=== PATIENT | female | born 1990 | race Caucasian/White ===

== ENCOUNTER 2019-08-02 13:33 | Emergency (ER) | payer OTHER ==
--- NOTE | 2019-08-02 13:52 | ED ---
HPI Chest Pain - HPI Summary HPI Summary: This pt is a 28 y/o transgender female presenting to [facility] via EMS for chest pain since yesterday. Pt describes her chest pain as nonradiating and heaviness like "someone standing" on her chest. Additionally pt states she has sharp pain every 45 seconds. Denies fever, chills, nausea, vomiting, SOB. EMS administered 324 mg aspirin and nitroglycerin [employer], but EMS states her chest pain did not alleviate immediately and took some time. At onset of her chest pain she rates it 10/10 in severity and currently rates her chest pain 1/10. Pt reports having "PTSD moments" and recent stress of trying to look for apartments. Last night she notes the apartments wouldn't take paper deposit from [employer] and became "amped up." She states she has never had chest pain in the past when becoming angry. PMHx: PTSD. Her medications include 6 mg of Estradiol and 200 mg of Spironolactone. Pt is a former tobacco user, quit 3 days ago. Pt states she quit because for the past month she has waken up with blood in her mouth and has been coughing "black things." Denies drug or alcohol use. - History of Current Complaint Chief Complaint: EDChestPainROMI Hx Obtained From: Patient Onset/Duration: Started Days Ago - 1, Still Present Timing: Lasting Days - 1 Initial Severity: Severe Current Severity: Mild Pain Intensity: 1 Pain Scale Used: 0-10 Numeric Chest Pain Location: Diffuse Chest Pain Radiates: No Character: Heaviness, Sharp/Stabbing - sharp Aggravating Factor(s): Nothing Alleviating Factor(s): Nothing Associated Signs and Symptoms: Positive: Chest Pain, Recent Stress. Negative: Shortness of Breath, Fever, Chills, Nausea, Vomiting - Allergy/Home Medications Allergies/Adverse Reactions: Allergies Allergy/AdvReac Type Severity Reaction Status Date / Time latex Allergy Rash Verified 08/02/19 14:31 Home Medications: Home Medications Estradiol [Estrace] 6 mg PO DAILY 08/02/19 [History Confirmed 08/02/19] Spironolactone [Aldactone 100 MG-] 200 mg PO DAILY 08/02/19 [History Confirmed 08/02/19] PMH/Surg Hx/FS Hx/Imm Hx Endocrine/Hematology History: Denies: Hx Diabetes Cardiovascular History: Denies: Hx Hypertension Psychiatric History: Reports: Hx Post Traumatic Stress Disorder - Surgical History Surgical History: Yes Surgery Procedure, Year, and Place: Right wrist surgery Infectious Disease History: No Infectious Disease History: Denies: Traveled Outside the US in Last 30 Days - Family History Known Family History: Positive: Diabetes Family History: High cholesterol - Social History Alcohol Use: None Substance Use Type: Reports: None Hx Tobacco Use: Yes - quit 3 days ago Smoking Status (MU): Former Smoker Review of Systems Negative: Fever, Chills Positive: Chest Pain Negative: Shortness Of Breath Negative: Vomiting, Nausea All Other Systems Reviewed And Are Negative: Yes Physical Exam - Summary Physical Exam Summary: VITAL SIGNS: Reviewed. GENERAL: Patient is a well-developed and nourished female who is lying comfortable in the stretcher. Patient is not in any acute respiratory distress. HEAD AND FACE: No signs of trauma. No ecchymosis, hematomas or skull depressions. No sinus tenderness. EYES: PERRLA, EOMI x 2, No injected conjunctiva, no nystagmus. EARS: Hearing grossly intact. Ear canals and tympanic membranes are within normal limits. MOUTH: Oropharynx within normal limits. NECK: Supple, trachea is midline, no adenopathy, no JVD, no carotid bruit, no c- spine tenderness, neck with full ROM. CHEST: Symmetric, no tenderness at palpation. LUNGS: Clear to auscultation bilaterally. No wheezing or crackles. CVS: Regular rate and rhythm, S1 and S2 present, no murmurs or gallops appreciated. ABDOMEN: Soft, non-tender. No signs of distention. No rebound, no guarding, and no masses palpated. Bowel sounds are normal. EXTREMITIES: FROM in all major joints, no edema, no cyanosis or clubbing. NEURO: Alert and oriented x 3. No acute neurological deficits. Speech is normal and follows commands. SKIN: Dry and warm. Triage Information Reviewed: Yes Vital Signs On Initial Exam: Initial Vitals Temp Pulse Resp BP Pulse Ox 97.6 F 73 16 109/57 97 08/02/19 13:38 08/02/19 13:38 08/02/19 13:38 08/02/19 13:38 08/02/19 13:38 Vital Signs Reviewed: Yes Procedures - Sedation Patient Received Moderate/Deep Sedation with Procedure: No Diagnostics - Vital Signs Vital Signs Temp Pulse Resp BP Pulse Ox 08/02/19 13:38 97.6 F 73 16 109/57 97 - Laboratory Result Diagrams: 08/02/19 14:55 08/02/19 14:55 Lab Statement: Any lab studies that have been ordered have been reviewed, and results considered in the medical decision making process. - Radiology Chest XR Radiology Interpretation Completed By: Radiologist Summary of Radiographic Findings: IMPRESSION: #. Elevated lung volumes suggest obstructive lung disease. #. No acute cardiopulmonary process evident. Dr. Verde has reviewed this report. - EKG 14:17 Cardiac Rate: NL - at 61 bpm EKG Rhythm: Sinus Rhythm Summary of EKG Findings: EKG at 1417 shows normal sinus rhythm at a rate of 61 bpm. No STEMI. Re-Evaluation - Re-Evaluation First Eval Re-Evaluation Time: 16:47 Comment: Reviewed results with pt. She will be discharged home. Chest Pain Course/Dx - Course Assessment/Plan: This pt is a 28 y/o transgender female presenting to [facility] via EMS for chest pain since yesterday. Pt describes her chest pain as nonradiating and heaviness like "someone standing" on her chest. Additionally pt states she has sharp pain every 45 seconds. Denies fever, chills, nausea, vomiting, SOB. EMS administered 324 mg aspirin and nitroglycerin [employer], but EMS states her chest pain did not alleviate immediately and took some time. At onset of her chest pain she rates it 10/10 in severity and currently rates her chest pain 1/10. Pt reports having "PTSD moments" and recent stress of trying to look for apartments. She notes the apartments won't take paper deposit from [employer] and got "amped up." She states she has never had chest pain in the past when becoming angry. PMHx: PTSD. Her medications include 6 mg of Estradiol and 200 mg of Spironolactone. Pt is a former tobacco user, quit 3 days ago. Pt states she quit because for the past month she has woken up with blood in her mouth and has been coughing "black things." Denies drug or alcohol use. Blood test results without any significant abnormality, troponin is 0.00. HEART score is equal to 0. Patient reports that all symptoms have resolved. Because the patient has no significant comorbidities and no family history of cardiovascular disease at her age the patient will be discharged home with follow up from her PMD. I discussed all the findings and test results with the patient. Patient was instructed to return to the emergency room immediately if any of the symptoms return or worsen. Patient understands and agrees. Plan of care was discussed with the patient and patient understands and agrees. All questions were answered at patient satisfaction. There were no further complaints or concerns. PE before discharge: CVS: S1 and S2 present. No murmurs appreciated. Abdominal exam before discharge: Soft, non-tender. No signs of distention. No rebound no guarding, and no masses palpated. Bowel sounds are normal. Patient is alert and oriented x 3. Patient is hemodynamically stable. - Diagnoses Provider Diagnoses: Chest pain Discharge ED - Sign-Out/Discharge Documenting (check all that apply): Patient Departure - Discharge home - Discharge Plan Condition: Stable Disposition: HOME Patient Education Materials: Chest Pain (ED) Referrals: [facility] [Outside] Additional Instructions: Follow up with your primary care provider in 2-3 days. If you don't have one follow up with [facility]. RETURN TO THE ED FOR ANY WORSENING OR NEW SYMPTOMS. - Billing Disposition and Condition Condition: STABLE Disposition: Home - Attestation Statements Document Initiated by Susan: Yes Documenting Scribe: Nicole Lima Provider For Whom Susan is Documenting (Include Credential): Devin Verde MD Scribe Attestation: Nicole Mortensen scribed for Devin Verde MD on 08/02/19 at 2126. Scribe Documentation Reviewed: Yes Provider Attestation: The documentation as recorded by the Nicole pemberton accurately reflects the service I personally performed and the decisions made by me, Devin Verde MD Status of Scribe Document: Viewed
[2019-08-02 14:46] LABS: Urine Appearance Cloudy; Urine Bilirubin Negative (Negative); Urine Blood Negative (Negative); Urine Color Yellow; Urine Glucose Negative (Negative); Urine Ketones Negative (Negative); Urine Nitrite Negative (Negative); Urine Protein Negative (Negative); Urine Specific Gravity 1.024 (1.010-1.030); Urine Urobilinogen Negative (Negative)
[2019-08-02 15:05] LABS: ABS Basophils 0.1 10^3/ul (0-0.2); ABS Eosinophils 0.1 10^3/ul (0-0.6); ABS Monocytes 0.9 10^3/ul (0-0.8); ABS Neutrophils 4.8 10^3/ul (1.5-7.7); Eosinophil % 1.4 %; Hematocrit 37 % (35-47); Hemoglobin 12.8 g/dL (12.0-16.0); Lymphocyte % 25.5 %; Mean Corpuscular HGB Conc 35 g/dL (31-36); Mean Corpuscular Hemoglobin 33 pg (27-31); Mean Corpuscular Volume 96 fL (80-97); Nucleated Red Blood Cells % 0.1; Platelet Count 336 10^3/uL (150-450); Red Blood Count 3.84 10^6 /uL (3.70-4.87); Red Cell Distribution Width 13 % (10-15); White Blood Count 7.9 10^3/uL (3.5-10.8)
[2019-08-02 15:28] LABS: Albumin 3.9 g/dL (3.2-5.2); Albumin/Globulin Ratio 1.6 (1-3); BUN/Creatinine Ratio 35.8 (8-20); Calcium 8.6 mg/dL (8.6-10.3); EGFR African American 166.2 (>60); EGFR Non-African American 137.4 (>60); Globulin 2.4 g/dL (2-4); Potassium 3.7 mmol/L (3.5-5.0); Total Bilirubin 0.3 mg/dL (0.2-1.0); Total Protein 6.3 g/dL (6.4-8.9)
[2019-08-02 17:23] VITALS: BP 123/76
== END 2019-08-02 17:22 | disposition home or self-care (01) ==
LOC: ED 13:33
DX: R07.9 Chest pain, unspecified (principal); F43.10 Post-traumatic stress disorder, unspecified; Z87.891 Personal history of nicotine dependence; Z79.899 Other long term (current) drug therapy; Z91.040 Latex allergy status
CPT/HCPCS: 36415; 71046; 80053; 81003; 83605; 83880; 84484; 85025; 93005; 99282

== ENCOUNTER 2019-08-26 14:18 | Emergency (ER) | payer OTHER ==
--- OUTSIDE RECORDS SUMMARY | 2019-08-26 14:35 | XMS REPORT ---
:1990 Author Organization [facility] Care Team Providers Name Role Phone Nakul Lee Primary Care Physician Unavailable Allergies, Adverse Reactions, Alerts Allergy Code CodeSystem Reaction Severity Criticality Status Start Substance Date Moderate Medications Medication Medication Medication Start Stop Route Dose Status Fill Code CodeSystem Date Date Instructions RxNorm Problems Problem Name Code CodeSystem Alternate Alternate Start End Status Narrative Code CodeSystem Date Date Post-traumat 93576125 SNOMED-CT 2018-08 Active ic stress 1-26 disorder, unspecified Relevant diagnostic tests/laboratory data Narrative No Information Procedures Procedure Code CodeSystem Target Date of Status Service Device Device Device Name Site Procedure Delivery Code Name UID Location Psychother [id number] SNOMED-CT () 2019-07-26 completed Mental apy, 45 4 Health- [facility] with [facility] patient [address] [place] [address], [id number] [id number] SNOMED-CT () 2019-08-[address], [id number] SNOMED-CT () 2019-07-[address], [id number] SNOMED-CT () 2019-07-[address], [id number] SNOMED-CT () 2019-07-[address], [id number] Encounters/Encounter Diagnoses Encounter Encounter Diagnosis Diagnosis Diagnosis Date of Service Name Code Code Name CodeSystem Diagnosis Delivery Location Initial [id number] Post-traumati SNOMED-CT 2019-08-07 Behavioral Assessment c stress Health Diagnostic & disorder, Clinic , , Treatment unspecified , Plan w/ Medical Services Vital Signs No Information Social History Element Description Description Start End Code CodeSystem AdditionalInfo Date Date SexAssignedAtBirth Female F AdministrativeGender 10-02 Hospital Discharge Instructions Reason For Referral Medical Equipment FDA Assessments
--- OUTSIDE RECORDS SUMMARY | 2019-08-26 14:35 | XMS REPORT ---
:1990 Author Organization [facility] Care Team Providers Name Role Phone Nakul Lee Primary Care Physician Unavailable Allergies, Adverse Reactions, Alerts Allergy Code CodeSystem Reaction Severity Criticality Status Start Substance Date Moderate Medications Medication Medication Medication Start Stop Route Dose Status Fill Code CodeSystem Date Date Instructions RxNorm Problems Problem Name Code CodeSystem Alternate Alternate Start End Status Narrative Code CodeSystem Date Date Post-traumat 93940856 SNOMED-CT 2018-08 Active ic stress - disorder, unspecified Relevant diagnostic tests/laboratory data Narrative No Information Procedures Procedure Code CodeSystem Target Date of Status Service Device Device Device Name Site Procedure Delivery Code Name UID Location SNOMED-CT () 2019-07-[address], [id number] Encounters/Encounter Diagnoses Encounter Name Encounter Diagnosis Diagnosis Diagnosis Date of Service Code Code Name CodeSystem Diagnosis Delivery Location Psychotherapy - [id number] Post-traumati SNOMED-CT 2019-07-26 Behavioral Individual 30 c stress Health min disorder, Clinic , , unspecified , Vital Signs No Information Social History Element Description Description Start End Code CodeSystem AdditionalInfo Date Date SexAssignedAtBirth Female 1990- F AdministrativeGender 10-02 Hospital Discharge Instructions Reason For Referral Medical Equipment FDA Assessments
--- OUTSIDE RECORDS SUMMARY | 2019-08-26 14:35 | XMS REPORT ---
:1990 Author Organization [facility] Care Team Providers Name Role Phone Nakul Lee Primary Care Physician Unavailable Allergies, Adverse Reactions, Alerts Allergy Code CodeSystem Reaction Severity Criticality Status Start Substance Date Moderate Medications Medication Medication Medication Start Stop Route Dose Status Fill Code CodeSystem Date Date Instructions RxNorm Problems Problem Name Code CodeSystem Alternate Alternate Start End Status Narrative Code CodeSystem Date Date Post-traumat [id number] SNOMED-CT 2018-08 Active ic stress - disorder, unspecified Relevant diagnostic tests/laboratory data Narrative No Information Procedures Procedure Code CodeSystem Target Date of Status Service Device Device Device Name Site Procedure Delivery Code Name UID Location SNOMED-CT () 2019-07-[address], [id number] SNOMED-CT () 2019-07-[address], [id number] Encounters/Encounter Diagnoses Encounter Name Encounter Diagnosis Diagnosis Diagnosis Date of Service Code Code Name CodeSystem Diagnosis Delivery Location [facility] [id number] Post-traumati SNOMED-CT 2019-07-26 Behavioral Individual 30 c stress Health min disorder, Clinic , , unspecified , Vital Signs No Information Social History Element Description Description Start End Code CodeSystem AdditionalInfo Date Date SexAssignedAtBirth Female F AdministrativeGender 2-11 Hospital Discharge Instructions Reason For Referral Medical Equipment FDA Assessments
--- NOTE | 2019-08-26 15:57 | ED ---
Respiratory - HPI Summary HPI Summary: Pt is a 28 y/o M to F transgender person presenting to the ED with a chief complaint of a cough. She states she has experienced hemoptysis for the past 4 weeks, and recently experienced chest tightness as well. She was seen prior for this with normal workup. She also notes she believes she had a seizure on 2019 because she had a sudden screaming migraine followed by confusion and losing track of two hours. She states shes had a seizure before with a similar presentation when she was 22, which a neurologist said was a complex migraine. She denies congestion, rhinorrhea, tongue bite, or incontinence. She recently started smoking again and is currently taking Estradiol and Spironolactone. States shes had an MRI of her back/chest done in [facility]. - History of Current Complaint Chief Complaint: EDGeneral Stated Complaint: COUGHING UP BLOOD PER PT Time Seen by Provider: 08/26/19 14:58 Hx Obtained From: Patient Onset/Duration: Gradual Onset, Lasting Weeks, Still Present Timing: Constant Initial Severity: Mild Current Severity: Moderate Pain Intensity: 4 Character: Cough (Productive) Sputum Amount: Moderate Aggravating Factor(s): Nothing Alleviating Factor(s): Nothing Associated Signs and Symptoms: Chest Pain, Hemoptysis - Allergy/Home Medications Allergies/Adverse Reactions: Allergies Allergy/AdvReac Type Severity Reaction Status Date / Time latex Allergy Rash Verified 08/26/19 14:25 PMH/Surg Hx/FS Hx/Imm Hx Previously Healthy: Yes Endocrine/Hematology History: Denies: Hx Diabetes Cardiovascular History: Denies: Hx Hypertension Psychiatric History: Reports: Hx Post Traumatic Stress Disorder - Surgical History Surgery Procedure, Year, and Place: Right wrist surgery Infectious Disease History: No Infectious Disease History: Denies: Traveled Outside the [place] in Last 30 Days - Family History Known Family History: Positive: Diabetes Negative: Blood Disorder Family History: High cholesterol - Social History Alcohol Use: None Hx Substance Use: Yes Substance Use Type: Reports: Marijuana Substance Use Comment - Amount & Last Used: Pt states she has a medical card Hx Tobacco Use: Yes - quit 3 days ago Smoking Status (MU): Former Smoker Review of Systems Negative: Nasal Discharge, Other - tongue bite Positive: Chest Pain Positive: Cough, Other - hemoptysis Negative: incontinence Neurological: Other - migraine, poss. seizure Positive: Headache All Other Systems Reviewed And Are Negative: Yes Physical Exam - Summary Physical Exam Summary: Constitutional: Well-developed, Well-nourished, Alert. (-) Distressed Skin: Warm, Dry HENT: Normocephalic; Atraumatic Eyes: Conjunctiva normal Neck: Musculoskeletal ROM normal neck. (-) JVD, (-) Stridor, (-) Nuchal rigidity Cardio: Rhythm regular, rate normal, Heart sounds normal; Intact distal pulses; Radial pulses are 2+ and symmetric. (-) Murmur Pulmonary/Chest wall: Effort normal. (-) Respiratory distress, (-) Wheezes, (-) Rales Abd: Soft, (-) tenderness, (-) Distension, (-) Guarding, (-) Rebound Musculoskeletal: (-) Edema Lymph: (-) Cervical adenopathy Neuro: Alert, Oriented x3 Psych: Mood and affect Normal Triage Information Reviewed: Yes Vital Signs On Initial Exam: Initial Vitals Temp Pulse Resp BP Pulse Ox 98.1 F 89 16 142/75 100 08/26/19 14:19 08/26/19 14:19 08/26/19 14:19 08/26/19 14:19 08/26/19 14:19 Vital Signs Reviewed: Yes Procedures - Sedation Patient Received Moderate/Deep Sedation with Procedure: No Diagnostics - Vital Signs Vital Signs Temp Pulse Resp BP Pulse Ox 08/26/19 15:33 86 24 115/67 97 08/26/19 15:04 82 99 08/26/19 15:03 77 136/77 99 08/26/19 14:19 98.1 F 89 16 142/75 100 - Laboratory Result Diagrams: 08/26/19 15:58 08/26/19 15:58 Lab Statement: Any lab studies that have been ordered have been reviewed, and results considered in the medical decision making process. - Radiology CXR Radiology Interpretation Completed By: Radiologist Summary of Radiographic Findings: No active cardiopulmonary disease is noted. ED physician has reviewed this report. Disposition - Course Course Of Treatment: 34 y/o male to female transgender patient presenting with hemoptysis concern for seizure. -regarding hemoptysis, patient has a smoking history which could be contributing to this. Reported possible abnormal lung findings on MRI but is unable to remember what it was. Chest x-ray here w/o abnormalities. D-dimer less than 200, do not suspect PE. Patient can follow up with the clinic regarding the MRI. - Patient has a history of a prior complex migraine which was initially thought to have been a seizure. Patient denies tongue biting, bowel or bladder incontinence, suspect episode more consistent with complex migraine. can follow up with neurology - Diagnoses Provider Diagnoses: Hemoptysis, Complicated migraine Discharge ED - Sign-Out/Discharge Documenting (check all that apply): Patient Departure - Discharge Plan Condition: Stable Disposition: HOME Patient Education Materials: Migraine Headache (ED), Hemoptysis (ED) Referrals: [facility] [Outside] Additional Instructions: You were seen in the emergency department for coughing up blood as well as concern for seizure. A chest x-ray did not show any abnormalities, your labs not show cause for coughing up blood. Regarding the concern for seizure, we advise you follow up with neurology for likely complex migraine. If you are concerned you are having seizures, please take a shower and do not take a bath, do not swim alone. Do not drive or operate machinery. P Please return to emergency department for continued seizures, trouble breathing , chest pain or if you're concerned Please follow up with your primary care doctor in next 2-3 days. It was a pleasure taking care of you today. - Billing Disposition and Condition Condition: STABLE Disposition: Home - Attestation Statements Document Initiated by Susan: Yes Documenting Scribe: Mary Herron Provider For Whom Susan is Documenting (Include Credential): Nasim Cruz MD. Scribe Attestation: IMary, scribed for Nasim Cruz MD. on 08/26/19 at 1650. Scribe Documentation Reviewed: Yes Provider Attestation: The documentation as recorded by the Mary pemberton accurately reflects the service I personally performed and the decisions made by , Nasim Cruz MD. Status of Scribe Document: Viewed
[2019-08-26 16:16] LABS: ABS Basophils 0.1 10^3/ul (0-0.2); ABS Eosinophils 0.1 10^3/ul (0-0.6); ABS Lymphocytes 2.2 10^3/ul (1.0-4.8); ABS Neutrophils 5.6 10^3/ul (1.5-7.7); Hematocrit 40 % (35-47); Hemoglobin 14.3 g/dL (12.0-16.0); Lymphocyte % 24.5 %; Mean Corpuscular HGB Conc 36 g/dL (31-36); Mean Corpuscular Hemoglobin 34 pg (27-31); Mean Corpuscular Volume 95 fL (80-97); Mean Platelet Volume 7.1 fL (7.4-10.4); Platelet Count 340 10^3/uL (150-450); Red Blood Count 4.18 10^6 /uL (3.70-4.87); Red Cell Distribution Width 13 % (10-15)
[2019-08-26 16:31] LABS: Albumin 4.3 g/dL (3.2-5.2); Albumin/Globulin Ratio 1.7 (1-3); BUN/Creatinine Ratio 31.7 (8-20); Calcium 9.4 mg/dL (8.6-10.3); Globulin 2.6 g/dL (2-4); Potassium 4.1 mmol/L (3.5-5.0); Total Bilirubin 0.4 mg/dL (0.2-1.0); Total Protein 6.9 g/dL (6.4-8.9)
[2019-08-26 17:01] VITALS: BP 111/64
== END 2019-08-26 17:14 | disposition home or self-care (01) ==
LOC: ED 14:18
DX: R04.2 Hemoptysis (principal); G43.109 Migraine with aura, not intractable, without status migrainosus; R07.89 Other chest pain; Z91.040 Latex allergy status; Z87.891 Personal history of nicotine dependence
CPT/HCPCS: 36415; 71046; 80053; 85025; 85379; 99283

== ENCOUNTER 2019-09-20 10:32 | Inpatient (IN) | payer OTHER ==
--- OUTSIDE RECORDS SUMMARY | 2019-09-20 10:45 | XMS REPORT ---
:1990 Author Organization [facility] Care Team Providers Name Role Phone DULCE MARIA TENORIO Primary Care Physician Unavailable Allergies, Adverse Reactions, Alerts Allergy Code CodeSystem Reaction Severity Criticality Status Start Substance Date Moderate Medications Medication Medication Medication Start Stop Route Dose Status Fill Code CodeSystem Date Date Instructions RxNorm Problems Problem Name Code CodeSystem Alternate Alternate Start End Status Narrative Code CodeSystem Date Date Post-traumat [id number] SNOMED-CT 2018-08 Active ic stress 1- disorder, unspecified Relevant diagnostic tests/laboratory data Narrative No Information Procedures Procedure Code CodeSystem Target Date of Status Service Device Device Device Name Site Procedure Delivery Code Name UID Location Psychotherap [id number] SNOMED-CT () 2019-07-26 complete Mental y, 45 04 d Health- minutes with [address], [id number] [id number] Psychotherap [id number] SNOMED-CT () 2019-08-07 complete Mental y, 45 04 d Health- minutes with [address], [id number] [id number] Psychotherap [id number] SNOMED-CT () 2019-08-14 complete Mental y, 45 04 d Health- minutes with [address], [id number] [id number] Psychotherap [id number] SNOMED-CT () 2019-08-29 complete Mental y, 45 04 d Health- minutes with [address], [id number] [id number] Psychotherap [id number] SNOMED-CT () 2019-08-28 complete Mental y, 45 04 d Health- minutes with [address], [id number] [id number] Psychotherap [id number] SNOMED-CT () 2019-09-03 complete Mental y, 45 04 d Health- minutes with [place] patient [address], [id number] [phone] Psychiatric [id number] SNOMED-CT () 2019-08-07 complete Mental diagnostic 85 d Health- evaluation [facility] services [address] [place] [address], [id number] [id number] SNOMED-CT () 2019-08-02 complete Mental d Health- [address], [id number] [id number] SNOMED-CT () 2019-07-31 complete Mental d Health- [address], [id number] [id number] SNOMED-CT () 2019-07-17 complete Mental d Health- [address], [id number] [id number] SNOMED-CT () 2019-07-24 complete Mental d Health- [address], [id number] [id number] Encounters/Encounter Diagnoses Encounter Name Encounter Diagnosis Diagnosis Diagnosis Date of Service Code Code Name CodeSystem Diagnosis Delivery Location [facility] [id number] Post-traumati SNOMED-CT 2019-09-12 Behavioral Individual 30 c stress Health min disorder, Clinic , , unspecified , Vital Signs No Information Social History Element Description Description Start End Code CodeSystem AdditionalInfo Date Date SexAssignedAtBirth Female F AdministrativeGender -11 Hospital Discharge Instructions Reason For Referral Medical Equipment FDA Assessments
--- OUTSIDE RECORDS SUMMARY | 2019-09-20 10:45 | XMS REPORT ---
:1990 Author Organization [facility] Care Team Providers Name Role Phone Nakul Lee Primary Care Physician Unavailable Allergies, Adverse Reactions, Alerts Allergy Code CodeSystem Reaction Severity Criticality Status Start Substance Date Moderate Medications Medication Medication Medication Start Stop Route Dose Status Fill Code CodeSystem Date Date Instructions RxNorm Problems Problem Name Code CodeSystem Alternate Alternate Start End Status Narrative Code CodeSystem Date Date Post-traumat 25667859 SNOMED-CT 2018-08 Active ic stress 09-16 disorder, unspecified Relevant diagnostic tests/laboratory data Narrative No Information Procedures Procedure Code CodeSystem Target Date of Status Service Device Device Device Name Site Procedure Delivery Code Name UID Location Psychotherap [id number] SNOMED-CT () 2019-07-26 complete Mental y, 45 04 d Health- minutes with [address], [id number] Psychotherap 202048 SNOMED-CT () 2019-08-07 complete Mental y, 45 04 d Health- minutes with [address], [id number] Psychiatric [id number] SNOMED-CT () 2019-08-07 complete Mental diagnostic 85 d Health- evaluation [address], [id number] SNOMED-CT () 2019-08-02 complete Mental d Health- [address], [id number] SNOMED-CT () 2019-07-31 complete Mental d Health[address], [id number] SNOMED-CT () 2019-07-17 complete Mental d [address], [id number] SNOMED-CT () 2019-07-24 complete Mental d Health- [address], [id number] [id number] Encounters/Encounter Diagnoses Encounter Encounter Diagnosis Diagnosis Diagnosis Date of Service Name Code Code Name CodeSystem Diagnosis Delivery Location Initial [id number] Post-traumati SNOMED-CT 2019-08-07 Behavioral Assessment c stress Health Diagnostic & disorder, Clinic , , Treatment unspecified , Plan w/ Medical Services Vital Signs No Information Social History Element Description Description Start End Code CodeSystem AdditionalInfo Date Date SexAssignedAtBirth Female F AdministrativeGender -11 Hospital Discharge Instructions Reason For Referral Medical Equipment FDA Assessments
[2019-09-20 11:01] LABS: ABS Basophils 0.1 10^3/ul (0-0.2); ABS Eosinophils 0.1 10^3/ul (0-0.6); ABS Lymphocytes 2.1 10^3/ul (1.0-4.8); ABS Monocytes 0.8 10^3/ul (0-0.8); ABS Neutrophils 5.5 10^3/ul (1.5-7.7); Eosinophil % 1.6 %; Hematocrit 41 % (35-47); Hemoglobin 14.7 g/dL (12.0-16.0); Lymphocyte % 24.3 %; Mean Corpuscular HGB Conc 36 g/dL (31-36); Mean Corpuscular Hemoglobin 34 pg (27-31); Mean Corpuscular Volume 94 fL (80-97); Mean Platelet Volume 7.1 fL (7.4-10.4); Nucleated Red Blood Cells % 0.1; Platelet Count 351 10^3/uL (150-450); Red Blood Count 4.35 10^6 /uL (3.70-4.87); Red Cell Distribution Width 12 % (10-15); White Blood Count 8.6 10^3/uL (3.5-10.8)
[2019-09-20 11:17] LABS: ALT 12 U/L (7-52); AST 14 U/L (13-39); Albumin 4.2 g/dL (3.2-5.2); Albumin/Globulin Ratio 1.4 (1-3); Alkaline Phosphatase 46 U/L (34-104); Anion Gap 6 mmol/L (2-11); BUN/Creatinine Ratio 12.9 (8-20); Blood Urea Nitrogen 8 mg/dL (6-24); CO2 Carbon Dioxide 28 mmol/L (22-32); Calcium 9.3 mg/dL (8.6-10.3); Chloride 102 mmol/L (101-111); EGFR African American 138.7 (>60); EGFR Non-African American 114.6 (>60); Globulin 2.9 g/dL (2-4); Glucose 84 mg/dL (70-100); Potassium 3.8 mmol/L (3.5-5.0); Sodium 136 mmol/L (135-145); Total Protein 7.1 g/dL (6.4-8.9)
[2019-09-20 11:24] LABS: Urine Appearance Cloudy; Urine Bilirubin Negative (Negative); Urine Blood Negative (Negative); Urine Color Yellow; Urine Glucose Negative (Negative); Urine Ketones Negative (Negative); Urine Nitrite Negative (Negative); Urine Protein Negative (Negative); Urine Specific Gravity 1.008 (1.010-1.030); Urine Urobilinogen Negative (Negative)
[2019-09-20 11:28] LABS: Urine Bacteria Absent (Absent); Urine Red Blood Cell Trace(0-2/hpf) (Absent); Urine Squamous Epithelial Cell Present (Absent); Urine White Blood Cell Trace(0-5/hpf) (Absent)
[2019-09-20 11:36] LABS: Urine Benzodiazepine Screen None Detected (None Detect); Urine Opiates Screen None Detected (None Detect)
[2019-09-20 12:09] LABS: Acetaminophen < 15 mcg/mL; Alcohol < 10 mg/dL (<10); Salicylate < 2.50 mg/dL (<30)
[2019-09-20 12:23] LABS: TSH (Thyroid Stimulating Horm) 1.82 mcIU/mL (0.34-5.60)
--- NOTE | 2019-09-20 13:01 | ED ---
Psychiatric Complaint - HPI Summary HPI Summary: Patient is a 28 y/o F presenting to [facility] via EMS under 945 status from [facility] for SI. Patient reports experiencing SI since moving to [place] but reports a recent exacerbation of this Sx. Patient notes Hx of past suicide attempts. Patient is currently on hormone therapy. Home medications and allergies are reviewed. - History Of Current Complaint Chief Complaint: EDMentalHealth Time Seen by Provider: 09/20/19 10:32 Hx Obtained From: Patient Onset/Duration: Lasting Weeks, Still Present, Worse Since Timing: Weeks Character: Depressed Has Suicidal: Reports: Thoughts, Has Prior Attempt(s) - Allergies/Home Medications Allergies/Adverse Reactions: Allergies Allergy/AdvReac Type Severity Reaction Status Date / Time latex Allergy Rash Verified 08/26/19 14:25 Home Medications: Home Medications Progesterone CAP (NF) [Prometrium (NF)] 100 mg PO DAILY 09/20/19 [History Confirmed 09/20/19] PMH/Surg Hx/FS Hx/Imm Hx Endocrine/Hematology History: Denies: Hx Diabetes Cardiovascular History: Denies: Hx Hypertension Psychiatric History: Reports: Hx Post Traumatic Stress Disorder - Surgical History Surgery Procedure, Year, and Place: Right wrist surgery Infectious Disease History: No Infectious Disease History: Denies: Traveled Outside the [place] in Last 30 Days - Family History Known Family History: Positive: Diabetes Negative: Blood Disorder Family History: High cholesterol - Social History Alcohol Use: None Hx Substance Use: Yes Substance Use Type: Reports: Marijuana Substance Use Comment - Amount & Last Used: Pt states she has a medical card Hx Tobacco Use: Yes - quit 3 days ago Smoking Status (MU): Light Every Day Tobacco Smoker Review of Systems Negative: Fever - on vitals, temp is 97.6 F Psychological: Other - positive - SI Positive: Depressed All Other Systems Reviewed And Are Negative: Yes Physical Exam - Summary Physical Exam Summary: VITAL SIGNS: Reviewed. GENERAL: Patient is a well-developed and nourished female who is lying comfortable in the stretcher. Patient is not in any acute respiratory distress. HEAD AND FACE: No signs of trauma. No ecchymosis, hematomas or skull depressions. No sinus tenderness. EYES: PERRLA, EOMI x 2, No injected conjunctiva, no nystagmus. EARS: Hearing grossly intact. Ear canals and tympanic membranes are within normal limits. MOUTH: Oropharynx within normal limits. NECK: Supple, trachea is midline, no adenopathy, no JVD, no carotid bruit, no c- spine tenderness, neck with full ROM. CHEST: Symmetric, no tenderness at palpation. LUNGS: Clear to auscultation bilaterally. No wheezing or crackles. CVS: Regular rate and rhythm, S1 and S2 present, no murmurs or gallops appreciated. ABDOMEN: Soft, non-tender. No signs of distention. No rebound, no guarding, and no masses palpated. Bowel sounds are normal. EXTREMITIES: FROM in all major joints, no edema, no cyanosis or clubbing. NEURO: Alert and oriented x 3. No acute neurological deficits. Speech is normal and follows commands. SKIN: Dry and warm. Triage Information Reviewed: Yes Vital Signs On Initial Exam: Initial Vitals Temp Pulse Resp BP Pulse Ox 97.6 F 73 16 113/67 98 09/20/19 10:39 09/20/19 10:39 09/20/19 10:39 09/20/19 10:39 09/20/19 10:39 Vital Signs Reviewed: Yes Procedures - Sedation Patient Received Moderate/Deep Sedation with Procedure: No Diagnostics - Vital Signs Vital Signs Temp Pulse Resp BP Pulse Ox 09/20/19 10:39 97.6 F 73 16 113/67 98 - Laboratory Lab Results: Lab Results 09/20/19 09/20/19 09/20/19 Range/Units 10:50 10:50 10:51 WBC 8.6 (3.5-10.8) 10^3/uL RBC 4.35 (3.70-4.87) 10^6 /uL Hgb 14.7 (12.0-16.0) g/dL Hct 41 (35-47) % MCV 94 (80-97) fL MCH 34 H (27-31) pg MCHC 36 (31-36) g/dL RDW 12 (10-15) % Plt Count 351 (150-450) 10^3/uL MPV 7.1 L (7.4-10.4) fL Neut % (Auto) 63.8 % Lymph % (Auto) 24.3 % [place] % (Auto) 9.3 % Eos % (Auto) 1.6 % Baso % (Auto) 1.0 % Absolute Neuts (auto) 5.5 (1.5-7.7) 10^3/ul Absolute Lymphs (auto) 2.1 (1.0-4.8) 10^3/ul Absolute Monos (auto) 0.8 (0-0.8) 10^3/ul Absolute Eos (auto) 0.1 (0-0.6) 10^3/ul Absolute Basos (auto) 0.1 (0-0.2) 10^3/ul Absolute Nucleated RBC 0.0 10^3/ul Nucleated RBC % 0.1 Sodium (135-145) mmol/L Potassium (3.5-5.0) mmol/L Chloride (101-111) mmol/L Carbon Dioxide (22-32) mmol/L Anion Gap (2-11) mmol/L BUN (6-24) mg/dL Creatinine (0.51-0.95) mg/dL Est GFR ( Amer) (>60) Est GFR (Non-Af Amer) (>60) BUN/Creatinine Ratio (8-20) Glucose (70-100) mg/dL Calcium (8.6-10.3) mg/dL Total Bilirubin (0.2-1.0) mg/dL AST (13-39) U/L ALT (7-52) U/L Alkaline Phosphatase (34-104) U/L Total Protein (6.4-8.9) g/dL Albumin (3.2-5.2) g/dL Globulin (2-4) g/dL Albumin/Globulin Ratio (1-3) TSH (0.34-5.60) mcIU/mL Urine Color Yellow Urine Appearance Cloudy Urine pH 5.0 (5-9) Ur Specific [place] 1.008 L (1.010-1.030) Urine Protein Negative (Negative) Urine Ketones Negative (Negative) Urine Blood Negative (Negative) Urine Nitrate Negative (Negative) Urine Bilirubin Negative (Negative) Urine Urobilinogen Negative (Negative) Ur Leukocyte Esterase Trace A (Negative) Urine WBC (Auto) Trace(0-5/hpf) (Absent) Urine RBC (Auto) Trace(0-2/hpf) (Absent) Ur Squamous Epith Cells Present A (Absent) Urine Bacteria Absent (Absent) Urine Glucose Negative (Negative) Urine Ascorbic Acid * A (Negative) Salicylates (<30) mg/dL Urine Opiates Screen None detected (None Detect) Acetaminophen mcg/mL Ur Barbiturates Screen None detected (None Detect) Ur Phencyclidine Scrn None detected (None Detect) Ur Amphetamines Screen None detected (None Detect) U Benzodiazepines Scrn None detected (None Detect) Urine Cocaine Screen None detected (None Detect) U Cannabinoids Screen None detected (None Detect) Serum Alcohol (<10) mg/dL 09/20/19 Range/Units 10:51 WBC (3.5-10.8) 10^3/uL RBC (3.70-4.87) 10^6 /uL Hgb (12.0-16.0) g/dL Hct (35-47) % MCV (80-97) fL MCH (27-31) pg MCHC (31-36) g/dL RDW (10-15) % Plt Count (150-450) 10^3/uL MPV (7.4-10.4) fL Neut % (Auto) % Lymph % (Auto) % [place] % (Auto) % Eos % (Auto) % Baso % (Auto) % Absolute Neuts (auto) (1.5-7.7) 10^3/ul Absolute Lymphs (auto) (1.0-4.8) 10^3/ul Absolute Monos (auto) (0-0.8) 10^3/ul Absolute Eos (auto) (0-0.6) 10^3/ul Absolute Basos (auto) (0-0.2) 10^3/ul Absolute Nucleated RBC 10^3/ul Nucleated RBC % Sodium 136 (135-145) mmol/L Potassium 3.8 (3.5-5.0) mmol/L Chloride 102 (101-111) mmol/L Carbon Dioxide 28 (22-32) mmol/L Anion Gap 6 (2-11) mmol/L BUN 8 (6-24) mg/dL Creatinine 0.62 (0.51-0.95) mg/dL Est GFR ( Amer) 138.7 (>60) Est GFR (Non-Af Amer) 114.6 (>60) BUN/Creatinine Ratio 12.9 (8-20) Glucose 84 (70-100) mg/dL Calcium 9.3 (8.6-10.3) mg/dL Total Bilirubin 0.50 (0.2-1.0) mg/dL AST 14 (13-39) U/L ALT 12 (7-52) U/L Alkaline Phosphatase 46 (34-104) U/L Total Protein 7.1 (6.4-8.9) g/dL Albumin 4.2 (3.2-5.2) g/dL Globulin 2.9 (2-4) g/dL Albumin/Globulin Ratio 1.4 (1-3) TSH 1.82 (0.34-5.60) mcIU/mL Urine Color Urine Appearance Urine pH (5-9) Ur Specific [place] (1.010-1.030) Urine Protein (Negative) Urine Ketones (Negative) Urine Blood (Negative) Urine Nitrate (Negative) Urine Bilirubin (Negative) Urine Urobilinogen (Negative) Ur Leukocyte Esterase (Negative) Urine WBC (Auto) (Absent) Urine RBC (Auto) (Absent) Ur Squamous Epith Cells (Absent) Urine Bacteria (Absent) Urine Glucose (Negative) Urine Ascorbic Acid (Negative) Salicylates < 2.50 (<30) mg/dL Urine Opiates Screen (None Detect) Acetaminophen < 15 mcg/mL Ur Barbiturates Screen (None Detect) Ur Phencyclidine Scrn (None Detect) Ur Amphetamines Screen (None Detect) U Benzodiazepines Scrn (None Detect) Urine Cocaine Screen (None Detect) U Cannabinoids Screen (None Detect) Serum Alcohol < 10 (<10) mg/dL Result Diagrams: 09/20/19 10:51 09/20/19 10:51 Lab Statement: Any lab studies that have been ordered have been reviewed, and results considered in the medical decision making process. Course/Dx - Course Assessment/Plan: Patient is a 28 y/o F presenting to [facility] via EMS under 945 status from [facility] for SI. Patient reports experiencing SI since moving to [place] but reports a recent exacerbation of this Sx. Patient notes Hx of past suicide attempts. Patient is currently on hormone therapy. Home medications and allergies are reviewed. Blood work w/o a significant abnormality. She is medically cleared. She is awaiting a MHE. Patient is hemodynamically stable and A+O x 3. Patient was evaluated by Dr. Jimenez and he recommends admission to his services for further workup and management. Diagnosis is major depressive disorder. - Differential Dx/Clinical Impression Differential Diagnosis/HQI/PQRI: Positive: Anxiety, Depression, Suicidal Ideation Provider Diagnosis: Depressive disorder - Physician Notifications Discussed Care Of Patient With: Silviano Jimenez Time Discussed With Above Provider: 14:47 Instructed by Provider To: Other - Patient's case was reviewed by Dr. Jimenez, patient will be a voluntary admit to [facility] psych. Discharge ED - Sign-Out/Discharge Documenting (check all that apply): Patient Departure - admit All imaging exams completed and their final reports reviewed: No Studies - Discharge Plan Condition: Stable Disposition: PSYCHIATRIC FACILITY-[facility] - Billing Disposition and Condition Condition: STABLE Disposition: Psychiatric Facility [facility] - Attestation Statements Document Initiated by Scribe: Yes Documenting Scribe: CHOCO MCMULLEN Provider For Whom Scribe is Documenting (Include Credential): JUDSON SAHU MD Scribe Attestation: CHOCO Mortensen, scribed for JUDSON SAHU MD on 09/20/19 at 2247. Scribe Documentation Reviewed: Yes Provider Attestation: The documentation as recorded by the marieibCHOCO renee accurately reflects the service I personally performed and the decisions made by , JUDSON SAHU MD Status of Scribe Document: Viewed
[2019-09-20] MEDS ORDERED: Al Hydrox/Mg Hydrox/Simet LIQ* 30 ML UDC PO PRN (15:00)
[2019-09-20] MEDS ORDERED: hydrOXYzine HCL TAB* 50 MG PO PRN (15:02)
[2019-09-20] MEDS: PTO: Estradiol TAB(NF) 2 MG TAB SCH (21:09)
[2019-09-20] MEDS: SPIRONOLACTONE 100 MG PO SCH (21:09)
[2019-09-20] MEDS: PROGESTERONE 100 MG PO SCH (21:10)
[2019-09-21 07:59] LABS: HDL Cholesterol 47.1 mg/dL
[2019-09-21] MEDS: PTO: Estradiol TAB(NF) 2 MG TAB SCH (10:51)
[2019-09-21] MEDS: SPIRONOLACTONE 100 MG PO SCH ×2 (10:54→20:19)
[2019-09-21] MEDS ORDERED: cloNIDine TAB* 0.1 MG PO PRN (13:55)
[2019-09-21] MEDS ORDERED: ESTRADIOL 2 MG PO ONE (15:30)
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
[2019-09-21] MEDS: Gabapentin CAP(*) 100 MG PO SCH (20:17)
[2019-09-21] MEDS: ESTRADIOL 2 MG PO SCH (20:18)
[2019-09-21] MEDS: PROGESTERONE 100 MG PO SCH (20:19)
[2019-09-22] MEDS: ESTRADIOL 2 MG PO SCH ×2 (08:35→20:37)
[2019-09-22] MEDS: SPIRONOLACTONE 100 MG PO SCH ×2 (08:36→20:37)
[2019-09-22 10:49] LABS: HIV 4th Generation Nonreactive (Nonreactive)
[2019-09-22 10:51] LABS: Hepatitis B Surface Antigen Nonreactive (Nonreactive)
[2019-09-22 11:08] LABS: Hepatitis C Antibody Negative (Negative)
[2019-09-22] MEDS ORDERED: Estradiol TAB(NF) 1 MG TAB PO ONE (13:47)
--- NOTE | 2019-09-22 17:22 | PN ---
Subjective - Subjective Date of Service: 09/22/19 Service Type: [id number] Hosp care 25 min moderate complexity Subjective: Kassie reports that she is down and worried about her future. She continues to be depressed but not interested in meds yet. Denies SI. Concerned about STD test and UTI. Objective - General Observations Appearance: Neat Appears Stated Age: Yes Stature: Thin Posture: WNL Eye Contact: Average Behavior/Activity: WNL - Interaction Observations Attitude Towards Examiner: Cooperative Stated Mood: Dysphoric Affect: Restricted Speech Pattern/Tone: Clear, Appropriate, Normal Volume Thought Process: Coherent, Goal Directed Perception: WNL Thought Content: Depressive Hallucination Type: Denies Delusion Type: Denies - Cognitive Function Orientation: A&O x 4 Level of Consciousness: Awake, Alert, Appropriate Cognition: WNL Estimated Intelligence: Normal Insight: Mostly Blames Others for Problems Judgment Within Normal Limits: No Ability to Make Reasonable Decisions: Moderately Impaired - Medication Compliance Cooperative with Inpatient Medication Regimen: Partial - Group Participation Participates in Group Activities: No Assessment - Assessment Merits Inpatient Hospitalization: For Immediate Safety, For Stabilization, To Initiate Treatment Plan - Plan Treatment Plan: Name: KASSIE ZAMBRANO Birthdate: 1990 [id number] Continued Medication Management: Consider Medication Medications: Current Medications Acetaminophen (Tylenol Tab*) 650 mg PO Q4H PRN PRN Reason: for pain; or Temp >101 F Al Hydrox/Mg Hydrox/Simethicone (Maalox Plus*) 30 ml PO Q4H PRN PRN Reason: INDIGESTION Clonidine HCl (Catapres Tab*) 0.1 mg PO BID PRN PRN Reason: AGITATION/ANXIETY Estradiol (Estradiol Tab(Nf)) 4 mg PO BID [facility] Last Admin: 09/22/19 08:35 Dose: 4 mg Gabapentin (Neurontin Cap(*)) 100 mg PO BEDTIME [facility] Last Admin: 09/21/19 20:17 Dose: 100 mg Hydroxyzine HCl (Atarax Tab*) 50 mg PO Q6H PRN PRN Reason: anxiety Pto:Nf Med Spironolactone 100 Mg Tablet 1 dose PO BID [facility] Last Admin: 09/22/19 08:36 Dose: 1 dose Progesterone (Prometrium (Nf)) 100 mg PO BEDTIME [facility] Last Admin: 09/21/19 20:19 Dose: 100 mg - Discharge Plan Discharge Plan: Outpatient Follow Up Outpatient Program: [facility]
[2019-09-22] MEDS: Gabapentin CAP(*) 100 MG PO SCH (20:35)
[2019-09-22] MEDS: PROGESTERONE 100 MG PO SCH (20:36)
[2019-09-23] MEDS: Acetaminophen TAB* 325 MG PO PRN ×2 (01:08→19:11)
[2019-09-23] MEDS: ESTRADIOL 2 MG PO SCH ×2 (08:27→20:52)
[2019-09-23] MEDS: SPIRONOLACTONE 100 MG PO SCH ×2 (08:27→20:50)
[2019-09-23] MEDS: Ibuprofen TAB* 800 MG PO PRN ×2 (16:11→20:50)
[2019-09-23] MEDS: Gabapentin CAP(*) 100 MG PO SCH (20:49)
[2019-09-23] MEDS: PROGESTERONE 100 MG PO SCH (20:51)
[2019-09-24] MEDS: SPIRONOLACTONE 100 MG PO SCH (08:46)
[2019-09-24] MEDS: ESTRADIOL 2 MG PO SCH (08:47)
[2019-09-24] MEDS: Ibuprofen TAB* 800 MG PO PRN (08:48)
[2019-09-24 09:19] VITALS: BP 94/55
[2019-09-24] MEDS ORDERED: cefTRIAXone VIAL(*) 250 MG VIAL IM ONE (10:41)
[2019-09-24] MEDS ORDERED: Lidocaine 1% MPF ** 5 ML VIAL IM ONE (10:41)
[2019-09-24] MEDS ORDERED: Azithromycin TAB* 250 MG PO ONE (10:41)
[2019-09-24] MEDS ORDERED: Gabapentin CAP(*) 100 MG PO PRN (10:42)
--- NOTE | 2019-09-24 10:45 | DCNOTE ---
Subjective - Subjective Service Types: [id number] Hosp DC Day Mgmt simple under 30 min Discharge Date: 09/24/19 Subjective: Patient reports improved sleep and mood. She is apologetic for reactivity r/t conflict with peers. She states she has been told by her therapist that she tends to regress to her 11yo self in times of duress. She states she is hopeful to learn ways to soothe herself in these types of incidences. She denies SI or passive wish. She submitted a 72-hour notice yesterday and is motivated to be discharged as soon as possible. She expresses desire to go to [facility] to pay outstanding bills. Objective - General Observations Appearance: Well Groomed Stature: Thin Posture: WNL Eye Contact: Average Behavior/Activity: WNL - Interaction Observations Attitude Towards Examiner: Cooperative Stated Mood: Euthymic Affect: Bright Speech Pattern/Tone: Clear, Appropriate, Normal Volume Thought Process: Coherent, Goal Directed Perception: WNL Thought Content: WNL Hallucination Type: Denies Delusion Type: Denies - Cognitive Function Orientation: A&O x 4 Level of Consciousness: Alert Cognition: WNL Estimated Intelligence: Normal Insight: WNL Judgment Within Normal Limits: Yes - Medication Compliance Cooperative with Inpatient Medication Regimen: Partial - Group Participation Participates in Group Activities: Yes DC Assessment - Assessment Clinical Impression: 28yo white, transgender male to female with extensive childhood trauma and chaotic adulthood. She was sent by [facility] therapist due to SI and heightened emotional responses. She has tolerated addition of gabapentin for pain and anxiety. She declines SSRIs due to her concern about interactions with hormone replacement. She has stabilized in this setting and denies SI or passive wish. Merits Inpatient Hospitalization: No Clear for Discharge: Adequate Clinical Respons, Acceptable Safety Profile Inpatient DSM-V Dx: F43.1 Discharge Planning - Discharge Planning Discharge Plan: Outpatient Follow Up Outpatient Program: [facility] Recommendations for Continuing Care: Medication Management, Psychotherapy, Primary Care Followup, Specialty Followup Medications: Current Medications Azithromycin (Zithromax Tab*) 1,000 mg PO ONCE ONE Stop: 09/24/19 10:42 Ceftriaxone Sodium (Rocephin Vial(*)) 250 mg IM ONCE ONE Stop: 09/24/19 10:42 Estradiol (Estradiol Tab(Nf)) 4 mg PO BID [facility] Last Admin: 09/24/19 08:47 Dose: 4 mg Gabapentin (Neurontin Cap(*)) 100 mg PO TID PRN PRN Reason: anxiety/pain Ibuprofen (Motrin Tab*) 800 mg PO BID PRN PRN Reason: PAIN - MODERATE Last Admin: 09/24/19 08:48 Dose: 800 mg Pto:Nf Med Spironolactone 100 Mg Tablet 1 dose PO BID [facility] Last Admin: 09/24/19 08:46 Dose: 1 dose Progesterone (Prometrium (Nf)) 100 mg PO BEDTIME [facility] Last Admin: 09/23/19 20:51 Dose: 100 mg Discharge Planning: Prescriptions provided for discharge [x] Yes [] No Follow up care details as per social work arrangements: [facility] Patient response to discharge plan: [x] eager for discharge [x] agreeable with discharge plan [] ambivalent about discharge [] disagrees with discharge today
--- NOTE | 2019-09-24 11:40 | PN ---
BSU: Group Therapy Note - Service Type Service Type: [id number] Group Psychotherapy - Cognitive Behavioral Group Therapy ( CBT):Patient was attentive and participatory in CBT programming this morning, and remained in good behavioral control. Patient expressed positive insights regarding relevant treatment interventions and goals.
[2019-09-24 13:05] LABS: Chlamydia trachomatis NAA Negative (Negative); Neisseria gonorrhoeae (GC) NAA Negative (Negative)
== END 2019-09-24 13:00 | disposition home or self-care (01) | DRG 755 ==
LOC: ED 10:32 → BSU 15:00
PROVIDERS: ADMIT Psychiatry & Neurology Psychiatry; ATTEND Psychiatry & Neurology Psychiatry
PROC: GZHZZZZ Group Psychotherapy (ICD-10-PCS; principal; 2019-09-24)
DX: F43.10 Post-traumatic stress disorder, unspecified (principal); R45.851 Suicidal ideations; F64.9 Gender identity disorder, unspecified; F60.3 Borderline personality disorder; F64.0 Transsexualism; F17.210 Nicotine dependence, cigarettes, uncomplicated; Z62.810 Personal history of physical and sexual abuse in childhood; F41.9 Anxiety disorder, unspecified; G43.909 Migraine, unspecified, not intractable, without status migrainosus; M41.9 Scoliosis, unspecified; Z91.5 Personal history of self-harm; Z91.040 Latex allergy status; Z79.890 Hormone replacement therapy; Z59.0 Homelessness
CPT/HCPCS: 36415; 80053; 80061; 80074; 80307; 80320; 80329; 81003; 81015; 83036; 84443; 85025; 87077; 87086; 87389; 87491; 87591; 90853; 99222; 99232; 99238; 99284; A9270-GY; G0480; J0696

== ENCOUNTER 2019-09-27 00:19 | Inpatient (IN) | payer OTHER ==
[2019-09-27 01:02] LABS: ABS Basophils 0.1 10^3/ul (0-0.2); ABS Eosinophils 0.1 10^3/ul (0-0.6); ABS Lymphocytes 1.8 10^3/ul (1.0-4.8); ABS Monocytes 0.9 10^3/ul (0-0.8); ABS Neutrophils 6.7 10^3/ul (1.5-7.7); Eosinophil % 1.1 %; Hematocrit 38 % (35-47); Hemoglobin 13.3 g/dL (12.0-16.0); Lymphocyte % 19.3 %; Mean Corpuscular HGB Conc 35 g/dL (31-36); Mean Corpuscular Hemoglobin 34 pg (27-31); Mean Corpuscular Volume 95 fL (80-97); Mean Platelet Volume 7.4 fL (7.4-10.4); Nucleated Red Blood Cells % 0.1; Platelet Count 301 10^3/uL (150-450); Red Blood Count 3.98 10^6 /uL (3.70-4.87); Red Cell Distribution Width 12 % (10-15); White Blood Count 9.6 10^3/uL (3.5-10.8)
[2019-09-27 01:18] LABS: ALT 10 U/L (7-52); AST 10 U/L (13-39); Albumin 4.1 g/dL (3.2-5.2); Albumin/Globulin Ratio 1.5 (1-3); Alkaline Phosphatase 56 U/L (34-104); Anion Gap 4 mmol/L (2-11); BUN/Creatinine Ratio 19.7 (8-20); Blood Urea Nitrogen 13 mg/dL (6-24); CO2 Carbon Dioxide 27 mmol/L (22-32); Calcium 8.6 mg/dL (8.6-10.3); Chloride 109 mmol/L (101-111); EGFR Non-African American 106.6 (>60); Globulin 2.8 g/dL (2-4); Glucose 123 mg/dL (70-100); Potassium 3.8 mmol/L (3.5-5.0); Sodium 140 mmol/L (135-145); Total Protein 6.9 g/dL (6.4-8.9)
[2019-09-27 01:36] LABS: Urine Appearance Cloudy; Urine Bilirubin Negative (Negative); Urine Blood Negative (Negative); Urine Color Yellow; Urine Glucose 1+(50 mg/dL) (Negative); Urine Ketones Trace (Negative); Urine Nitrite Negative (Negative); Urine Protein Negative (Negative); Urine Specific Gravity 1.013 (1.010-1.030); Urine Urobilinogen Negative (Negative)
--- NOTE | 2019-09-27 01:42 | ED ---
Psychiatric Complaint - HPI Summary HPI Summary: 28 year old female presents with increasing depression for the past couple days. She states that she was doing better but now has been worse. States that she's had increased stressors in her life. She is planning to jump off a bridge. Has had previous suicidal attempts. denies any drug or alcohol use. on exam has normal physical exam. is medically clear to mental health. patient will be signed out to dr cabello pending mhe. - History Of Current Complaint Chief Complaint: EDMentalHealth Time Seen by Provider: 09/27/19 00:37 - Allergies/Home Medications Allergies/Adverse Reactions: Allergies Allergy/AdvReac Type Severity Reaction Status Date / Time latex Allergy Rash Verified 08/26/19 14:25 PMH/Surg Hx/FS Hx/Imm Hx Endocrine/Hematology History: Denies: Hx Diabetes Cardiovascular History: Denies: Hx Hypertension Sensory History: Denies: Hx Contacts or Glasses, Hx Hearing Aid Opthamlomology History: Denies: Hx Contacts or Glasses Psychiatric History: Reports: Hx Depression, Hx Post Traumatic Stress Disorder, Hx Suicide Attempt Denies: Hx Eating Disorder, Hx Schizophrenia, Hx Bipolar Disorder - Surgical History Surgery Procedure, Year, and Place: Right wrist surgery Infectious Disease History: No Infectious Disease History: Denies: Traveled Outside the [place] in Last 30 Days - Family History Known Family History: Positive: Diabetes Negative: Blood Disorder Family History: High cholesterol - Social History Alcohol Use: None Hx Substance Use: Yes Substance Use Type: Reports: Marijuana Substance Use Comment - Amount & Last Used: Pt states she has a medical card Hx Tobacco Use: Yes - quit 3 days ago Smoking Status (MU): Light Every Day Tobacco Smoker Review of Systems Negative: Fever Negative: Chest Pain Negative: Shortness Of Breath Positive: Depressed All Other Systems Reviewed And Are Negative: Yes Physical Exam Triage Information Reviewed: Yes Vital Signs On Initial Exam: Initial Vitals Temp Pulse Resp BP Pulse Ox 100 F 106 20 115/83 98 09/27/19 00:20 09/27/19 00:20 09/27/19 00:20 09/27/19 00:20 09/27/19 00:20 Vital Signs Reviewed: Yes Appearance: Positive: Well-Appearing Skin: Positive: Warm, Dry Head/Face: Positive: Normal Head/Face Inspection Eyes: Positive: Normal, Conjunctiva Clear ENT: Positive: Pharynx normal Respiratory/Lung Sounds: Positive: Clear to Auscultation, Breath Sounds Present Cardiovascular: Positive: Normal, RRR Musculoskeletal: Positive: Normal Neurological: Positive: Normal Psychiatric: Positive: Depressed Procedures - Sedation Patient Received Moderate/Deep Sedation with Procedure: No Diagnostics - Vital Signs Vital Signs Temp Pulse Resp BP Pulse Ox 09/27/19 00:20 100 F 106 20 115/83 98 - Laboratory Lab Results: Lab Results 09/27/19 09/27/19 09/27/19 Range/Units 00:54 00:54 01:23 WBC 9.6 (3.5-10.8) 10^3/uL RBC 3.98 (3.70-4.87) 10^6 /uL Hgb 13.3 (12.0-16.0) g/dL Hct 38 (35-47) % MCV 95 (80-97) fL MCH 34 H (27-31) pg MCHC 35 (31-36) g/dL RDW 12 (10-15) % Plt Count 301 (150-450) 10^3/uL MPV 7.4 (7.4-10.4) fL Neut % (Auto) 69.8 % Lymph % (Auto) 19.3 % Wilson % (Auto) 9.0 % Eos % (Auto) 1.1 % Baso % (Auto) 0.8 % Absolute Neuts (auto) 6.7 (1.5-7.7) 10^3/ul Absolute Lymphs (auto) 1.8 (1.0-4.8) 10^3/ul Absolute Monos (auto) 0.9 H (0-0.8) 10^3/ul Absolute Eos (auto) 0.1 (0-0.6) 10^3/ul Absolute Basos (auto) 0.1 (0-0.2) 10^3/ul Absolute Nucleated RBC 0.0 10^3/ul Nucleated RBC % 0.1 Sodium 140 (135-145) mmol/L Potassium 3.8 (3.5-5.0) mmol/L Chloride 109 (101-111) mmol/L Carbon Dioxide 27 (22-32) mmol/L Anion Gap 4 (2-11) mmol/L BUN 13 (6-24) mg/dL Creatinine 0.66 (0.51-0.95) mg/dL Est GFR ( Amer) 129.0 (>60) Est GFR (Non-Af Amer) 106.6 (>60) BUN/Creatinine Ratio 19.7 (8-20) Glucose 123 H (70-100) mg/dL Calcium 8.6 (8.6-10.3) mg/dL Total Bilirubin 0.30 (0.2-1.0) mg/dL AST 10 L (13-39) U/L ALT 10 (7-52) U/L Alkaline Phosphatase 56 (34-104) U/L Total Protein 6.9 (6.4-8.9) g/dL Albumin 4.1 (3.2-5.2) g/dL Globulin 2.8 (2-4) g/dL Albumin/Globulin Ratio 1.5 (1-3) TSH Pending Urine Color Yellow Urine Appearance Cloudy Urine pH 5.0 (5-9) Ur Specific [place] 1.013 (1.010-1.030) Urine Protein Negative (Negative) Urine Ketones Trace A (Negative) Urine Blood Negative (Negative) Urine Nitrate Negative (Negative) Urine Bilirubin Negative (Negative) Urine Urobilinogen Negative (Negative) Ur Leukocyte Esterase Negative (Negative) Urine Glucose 1+(50 mg/dl) A (Negative) Urine Ascorbic Acid * A (Negative) Salicylates Pending Acetaminophen Pending Serum Alcohol Pending Result Diagrams: 09/27/19 00:54 09/27/19 00:54 Lab Statement: Any lab studies that have been ordered have been reviewed, and results considered in the medical decision making process. Course/Dx - Course Course Of Treatment: 28 year old female presents with increasing depression for the past couple days. She states that she was doing better but now has been worse. States that she's had increased stressors in her life. She is planning to jump off a bridge. Has had previous suicidal attempts. denies any drug or alcohol use. on exam has normal physical exam. is medically clear to mental health. patient will be signed out to dr cabello pending mhe. - Differential Dx/Clinical Impression Differential Diagnosis/HQI/PQRI: Positive: Anxiety, Depression, Suicidal Ideation Provider Diagnosis: Depression Discharge ED - Sign-Out/Discharge Documenting (check all that apply): Sign-Out Patient Signing out patient TO: Brandon Cabello - Discharge Plan Referrals: No Primary Care Phys,NOPCP [Primary Care Provider] -
[2019-09-27 01:46] LABS: Acetaminophen < 15 mcg/mL; Alcohol < 10 mg/dL (<10); Salicylate < 2.50 mg/dL (<30)
[2019-09-27 02:00] LABS: Urine Benzodiazepine Screen None Detected (None Detect); Urine Opiates Screen None Detected (None Detect)
[2019-09-27 02:01] LABS: TSH (Thyroid Stimulating Horm) 2.15 mcIU/mL (0.34-5.60)
--- OUTSIDE RECORDS SUMMARY | 2019-09-27 02:11 | XMS REPORT ---
:1990 Author Organization [facility] Care Team Providers Name Role Phone DULCE MARIA TENORIO Primary Care Physician Unavailable Allergies, Adverse Reactions, Alerts Allergy Code CodeSystem Reaction Severity Criticality Status Start Substance Date Moderate Medications Medication Medication Medication Start Stop Route Dose Status Fill Code CodeSystem Date Date Instructions RxNorm Problems Problem Name Code CodeSystem Alternate Alternate Start End Status Narrative Code CodeSystem Date Date Post-traumat [id number] SNOMED-CT 2018-08 Active ic stress 09-16 disorder, unspecified Relevant diagnostic tests/laboratory data Narrative No Information Procedures Procedure Code CodeSystem Target Date of Status Service Device Device Device Name Site Procedure Delivery Code Name UID Location SNOMED-CT () 2019-07-17 complete Mental d [address], [id number] SNOMED-CT () 2019-07-24 complete Mental d [address], [id number] [id number] Psychiatric [id number] SNOMED-CT () 2019-08-07 complete Mental diagnostic 85 d Health- evaluation [address], [id number] SNOMED-CT () 2019-08-02 complete Mental d Health[address], [id number] Psychotherap [id number] SNOMED-CT () 2019-07-26 complete Mental y, 45 04 d Health- minutes with [address], [id number] Psychotherap [id number] SNOMED-CT () 2019-08-07 complete Mental y, 45 04 d Health- minutes with [address], [id number] [id number] Psychotherap [id number] SNOMED-CT () 2019-08-14 complete Mental y, 45 04 d Health- minutes with [address], [id number] Psychotherap [id number] SNOMED-CT () 2019-08-29 complete Mental y, 45 04 d Health- minutes with [address], [id number] Psychotherap [id number] SNOMED-CT () 2019-08-28 complete Mental y, 45 04 d Health- minutes with [address], [id number] [id number] Psychotherap [id number] SNOMED-CT () 2019-09-03 complete Mental y, 45 04 d Health- minutes with [address], [id number] [id number] Psychotherap [id number] SNOMED-CT () 2019-09-05 complete Mental y, 45 04 d Health- minutes with [address], [id number] SNOMED-CT () 2019-07-31 complete Mental d Health- [address], [id number] [id number] Encounters/Encounter Diagnoses Encounter Name Encounter Diagnosis Diagnosis Diagnosis Date of Service Code Code Name CodeSystem Diagnosis Delivery Location Psychotherapy [id number] Post-traumati SNOMED-CT 2019-09-12 Behavioral Individual 30 c stress Health min disorder, Clinic , , unspecified , Vital Signs No Information Social History Element Description Description Start End Code CodeSystem AdditionalInfo Date Date SexAssignedAtBirth Female F AdministrativeGender 2-11 Hospital Discharge Instructions Reason For Referral Medical Equipment FDA Assessments
--- NOTE | 2019-09-27 03:05 | ED ---
Progress - Progress Note Progress Note: Patient signed out from BROWN Dinero, upon shift change 09/27/2019 0230 pending psychiatric evaluation and disposition. Course/Dx - Course Course Of Treatment: Patient signed out from BROWN Dinero, upon shift change 09/27/2019 0230 pending psychiatric evaluation and disposition. Patient will be signed out to Dr. Gates upon shift change 09/27/2019 0700 pending psychiatric evaluation and disposition. - Diagnoses Provider Diagnoses: Depression Discharge ED - Sign-Out/Discharge Documenting (check all that apply): Sign-Out Patient, Receiving Sign-Out Signing out patient TO: Gigi Gates Receiving patient FROM: Amber Alonso - Discharge Plan Condition: Stable Disposition: PSYCHIATRIC FACILITY-[facility] [place] - Billing Disposition and Condition Condition: STABLE Disposition: Psychiatric Facility [facility] - Attestation Statements Document Initiated by Scribe: Yes Documenting Scribe: Kim Marinelli Provider For Whom Scribe is Documenting (Include Credential): Brandon Reyes MD Scribe Attestation: Kim Mortensen, scribed for Brandon Reyes MD on 09/30/19 at 0631. Scribe Documentation Reviewed: Yes Provider Attestation: The documentation as recorded by the Kim pemberton accurately reflects the service I personally performed and the decisions made by , Brandon Reyes MD Status of Scribe Document: Viewed
--- NOTE | 2019-09-27 07:25 | ED ---
Progress - Progress Note Progress Note: The patient is a sign-out from Dr. Brandon Reyes MD, to Dr. Gigi Gates MD , at change of shift at 0700 on 09/27/2019, pending mental health evaluation and disposition. Course/Dx - Diagnoses Provider Diagnoses: Depression Discharge ED - Sign-Out/Discharge Documenting (check all that apply): Receiving Sign-Out Receiving patient FROM: Brandon Reyes - Patient is a sign-out from Dr. Brandon Reyes MD, at 0700 on 09/27/2019, pending MHE and disposition. - Discharge Plan Condition: Stable - Billing Disposition and Condition Condition: STABLE - Attestation Statements Document Initiated by Tatie: Yes Documenting Scribe: She Garcia Provider For Whom Susan is Documenting (Include Credential): Dr. Gigi Gates MD Scribe Attestation: She Mortensen scribed for Dr. Gigi Gates MD on 09/27/19 at 1851. Scribe Documentation Reviewed: Yes Provider Attestation: The documentation as recorded by the She pemberton accurately reflects the service I personally performed and the decisions made by me, Dr. Gigi Gates MD Status of Scribe Document: Viewed Procedures - Sedation Patient Received Moderate/Deep Sedation with Procedure: No
[2019-09-27] MEDS ORDERED: Spironolactone TAB* 25 MG PO ONE (08:54)
--- NOTE | 2019-09-27 08:54 | PN ---
ED Psychiatric Progress Note Date of Service: 09/27/19 Subjective: This is a 28 year-old F who is pending admission to [facility] / transfer to another psychiatric facility / discharge to home / or being observed secondary to depression, SI. Pt. in [address]. Objective: Vitals: Most recent vital signs documented below. General NAD Laboratory: Current laboratory results documented below. Assessment: Depression. Plan: Pending MHE. Morning home medications ordered. Vital Signs Temp Pulse Resp BP Pulse Ox 97.3 F 81 12 103/57 99 09/27/19 07:28 09/27/19 07:28 09/27/19 07:28 09/27/19 07:28 09/27/19 07:28 Lab Results - Entire Visit 09/27/19 09/27/19 09/27/19 01:23 01:23 00:54 WBC RBC Hgb Hct MCV MCH MCHC RDW Plt Count MPV Neut % (Auto) Lymph % (Auto) [place] % (Auto) Eos % (Auto) Baso % (Auto) Absolute Neuts (auto) Absolute Lymphs (auto) Absolute Monos (auto) Absolute Eos (auto) Absolute Basos (auto) Absolute Nucleated RBC Nucleated RBC % Sodium 140 Potassium 3.8 Chloride 109 Carbon Dioxide 27 Anion Gap 4 BUN 13 Creatinine 0.66 Est GFR ( Amer) 129.0 Est GFR (Non-Af Amer) 106.6 BUN/Creatinine Ratio 19.7 Glucose 123 H Calcium 8.6 Total Bilirubin 0.30 AST 10 L ALT 10 Alkaline Phosphatase 56 Total Protein 6.9 Albumin 4.1 Globulin 2.8 Albumin/Globulin Ratio 1.5 TSH 2.15 Urine Color Yellow Urine Appearance Cloudy Urine pH 5.0 Ur Specific [place] 1.013 Urine Protein Negative Urine Ketones Trace A Urine Blood Negative Urine Nitrate Negative Urine Bilirubin Negative Urine Urobilinogen Negative Ur Leukocyte Esterase Negative Urine Glucose 1+(50 mg/dl) A Urine Ascorbic Acid * A Salicylates < 2.50 Urine Opiates Screen None detected Acetaminophen < 15 Ur Barbiturates Screen None detected Ur Phencyclidine Scrn None detected Ur Amphetamines Screen None detected U Benzodiazepines Scrn None detected Urine Cocaine Screen None detected U Cannabinoids Screen Presumptive positive A Serum Alcohol < 10 09/27/19 00:54 WBC 9.6 RBC 3.98 Hgb 13.3 Hct 38 MCV 95 MCH 34 H MCHC 35 RDW 12 Plt Count 301 MPV 7.4 Neut % (Auto) 69.8 Lymph % (Auto) 19.3 [place] % (Auto) 9.0 Eos % (Auto) 1.1 Baso % (Auto) 0.8 Absolute Neuts (auto) 6.7 Absolute Lymphs (auto) 1.8 Absolute Monos (auto) 0.9 H Absolute Eos (auto) 0.1 Absolute Basos (auto) 0.1 Absolute Nucleated RBC 0.0 Nucleated RBC % 0.1 Sodium Potassium Chloride Carbon Dioxide Anion Gap BUN Creatinine Est GFR ( Amer) Est GFR (Non-Af Amer) BUN/Creatinine Ratio Glucose Calcium Total Bilirubin AST ALT Alkaline Phosphatase Total Protein Albumin Globulin Albumin/Globulin Ratio TSH Urine Color Urine Appearance Urine pH Ur Specific [place] Urine Protein Urine Ketones Urine Blood Urine Nitrate Urine Bilirubin Urine Urobilinogen Ur Leukocyte Esterase Urine Glucose Urine Ascorbic Acid Salicylates Urine Opiates Screen Acetaminophen Ur Barbiturates Screen Ur Phencyclidine Scrn Ur Amphetamines Screen U Benzodiazepines Scrn Urine Cocaine Screen U Cannabinoids Screen Serum Alcohol
[2019-09-27] MEDS ORDERED: Estradiol TAB(NF) 2 MG TAB PO ONE (08:55)
[2019-09-27] MEDS ORDERED: Gabapentin CAP(*) 100 MG PO ONE (08:55)
[2019-09-27] MEDS ORDERED: Estradiol TAB(NF) 2 MG TAB PO SCH (09:00)
[2019-09-27] MEDS ORDERED: Estradiol TAB(NF) 1 MG TAB PO ONE (10:00)
[2019-09-27] MEDS ORDERED: Al Hydrox/Mg Hydrox/Simet LIQ* 30 ML UDC PO PRN (12:19)
[2019-09-27] MEDS ORDERED: Acetaminophen TAB* 325 MG PO PRN (12:19)
[2019-09-27] MEDS: Gabapentin CAP(*) 100 MG PO PRN ×2 (14:43→19:14)
[2019-09-27] MEDS ORDERED: Ibuprofen TAB* 400 MG ONE (19:13)
[2019-09-27] MEDS: PROGESTERONE 100 MG PO SCH (19:16)
[2019-09-27] MEDS: PTO: Estradiol TAB(NF) 2 MG TAB PO SCH (19:16)
[2019-09-27] MEDS: SPIRONOLACTONE 100 MG PO SCH (19:17)
[2019-09-28] MEDS: Vitamin THERAPEUTIC TAB PO SCH (08:41)
[2019-09-28] MEDS: PTO: Estradiol TAB(NF) 2 MG TAB PO SCH ×2 (08:47→21:27)
[2019-09-28] MEDS: SPIRONOLACTONE 100 MG PO SCH ×2 (08:49→21:26)
[2019-09-28] MEDS: Gabapentin CAP(*) 100 MG PO PRN ×3 (08:51→21:24)
[2019-09-28] MEDS: DULoxetine DR CAP* 30 MG CAP.DR PO SCH (12:55)
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
[2019-09-28] MEDS: Cyclobenzaprine TAB* 10 MG PO PRN (21:24)
[2019-09-28] MEDS: PROGESTERONE 100 MG PO SCH (21:26)
[2019-09-29] MEDS: Ibuprofen TAB* 400 MG PO PRN ×2 (06:55→13:05)
[2019-09-29 08:13] VITALS: BP 108/60
[2019-09-29] MEDS: DULoxetine DR CAP* 30 MG CAP.DR PO SCH (08:38)
[2019-09-29] MEDS: SPIRONOLACTONE 100 MG PO SCH ×2 (08:38→20:11)
[2019-09-29] MEDS: PTO: Estradiol TAB(NF) 2 MG TAB PO SCH ×2 (08:39→20:11)
[2019-09-29] MEDS: Vitamin THERAPEUTIC TAB PO SCH (08:40)
[2019-09-29] MEDS: Gabapentin CAP(*) 100 MG PO PRN ×3 (08:42→20:13)
--- NOTE | 2019-09-29 14:52 | PN ---
Subjective - Subjective Date of Service: 09/29/19 Service Type: 12575 Hosp care 15 min low complexity Subjective: Kassie is seen in weekend coverage for attending NPP, Kavitha Clarke. The patient is found playing the Meddlea in the wellness room. She says she feels "on the cusp" of suicidal thoughts, informing me that she is "still down and I know it takes awhile for the medicine to work." The patient is somatic, requesting increased dosage of ibuprofen, an extra morning administration of baclofen and some Bengay. She reports being just fired from her job at [employer] and views this as the chief precipitant for readmission. Objective - General Observations Appearance: Well Groomed Appears Stated Age: Yes Stature: WNL Posture: WNL Eye Contact: Average Behavior/Activity: WNL - Interaction Observations Attitude Towards Examiner: Cooperative Stated Mood: Dysphoric Affect: Full Speech Pattern/Tone: Clear, Appropriate, Quiet Volume Thought Content: WNL Thought Process: Lethality: Passive Wish Hallucination Type: None Delusion Type: None - Cognitive Function Orientation: A&O x 4 Level of Consciousness: Awake Cognition: WNL Estimated Intelligence: Normal Insight: WNL Judgment Within Normal Limits: Yes - Medication Compliance Cooperative with Inpatient Medication Regimen: Yes - Group Participation Participates in Group Activities: Yes Assessment - Assessment Merits Inpatient Hospitalization: For Immediate Safety, For Stabilization Inpatient DSM-V Dx: F43.10 Clinical Impression: 28 y.o. single, homeless, male to female transgendered individual with a history of trauma and PTSD who was recently discharged from the BSU now returns seeking further hospitalization for suicidal thoughts in the context of multiple psychosocial stressors. BSU: Problem List - Patient Problems (1) PTSD (post-traumatic stress disorder) Current Visit: No Status: Acute Priority: High Code(s): F43.10 - POST- TRAUMATIC STRESS DISORDER, UNSPECIFIED SNOMED Code(s): 63781129 Plan - Plan Treatment Plan: Name: KASSIE ZAMBRANO Birthdate: 1990 [id number] The patient has been started on a trial of duloxetine and has had her gabapentin increased. Continue inpatient level care. Continued Medication Management: Different Medication Medications: Current Medications Acetaminophen (Tylenol Tab*) 650 mg PO Q4H PRN PRN Reason: for pain; or Temp >101 F Al Hydrox/Mg Hydrox/Simethicone (Maalox Plus*) 30 ml PO Q4H PRN PRN Reason: INDIGESTION Cyclobenzaprine HCl (Flexeril Tab*) 10 mg PO BEDTIME PRN PRN Reason: SPASMS - MUSCLE Last Admin: 09/28/19 21:24 Dose: 10 mg Duloxetine HCl (Cymbalta Cap*) 30 mg PO DAILY [facility] Last Admin: 09/29/19 08:38 Dose: 30 mg Estradiol (Estradiol Tab(Nf)) 4 mg PO BID [facility] Last Admin: 09/29/19 08:39 Dose: 4 mg Gabapentin (Neurontin Cap(*)) 200 mg PO TID PRN PRN Reason: anxiety/pain Last Admin: 09/29/19 13:04 Dose: 200 mg Ibuprofen (Motrin Tab*) 400 mg PO Q6H PRN PRN Reason: Pain Last Admin: 09/29/19 13:05 Dose: 400 mg Multivitamins (Theragran Tab*) 1 tab PO DAILY [facility] Last Admin: 09/29/19 08:40 Dose: Not Given Pto: Spironolactone (100mg Tab) 1 dose PO BID [facility] Last Admin: 09/29/19 08:38 Dose: 1 dose Progesterone (Prometrium (Nf)) 100 mg PO QPM [facility]; Protocol Last Admin: 09/28/19 21:26 Dose: 100 mg - Discharge Plan Discharge Plan: Inpatient Hospitalization
[2019-09-29] MEDS ORDERED: Analgesic BALM* 114 GM TOPICAL PRN (14:54)
[2019-09-29] MEDS: Ibuprofen TAB* 800 MG PO PRN (17:46)
[2019-09-29] MEDS: PROGESTERONE 100 MG PO SCH (20:11)
[2019-09-29] MEDS: Cyclobenzaprine TAB* 10 MG PO PRN (20:13)
[2019-09-30] MEDS: Ibuprofen TAB* 800 MG PO PRN ×2 (06:50→21:06)
[2019-09-30] MEDS: DULoxetine DR CAP* 30 MG CAP.DR PO SCH (08:42)
[2019-09-30] MEDS: Gabapentin CAP(*) 100 MG PO PRN ×3 (08:42→21:06)
[2019-09-30] MEDS: PTO: Estradiol TAB(NF) 2 MG TAB PO SCH ×2 (08:43→21:07)
[2019-09-30] MEDS: SPIRONOLACTONE 100 MG PO SCH ×2 (08:43→21:07)
[2019-09-30] MEDS: Vitamin THERAPEUTIC TAB PO SCH (08:44)
[2019-09-30] MEDS ORDERED: OLANzapine TAB*ODT* 10 MG TAB PO ONE (16:15)
[2019-09-30] MEDS ORDERED: OLANzapine TAB*ODT* 10 MG TAB ONE (17:53)
[2019-09-30] MEDS: Cyclobenzaprine TAB* 10 MG PO PRN (21:05)
[2019-09-30] MEDS: PROGESTERONE 100 MG PO SCH (21:06)
[2019-10-01] MEDS: DULoxetine DR CAP* 30 MG CAP.DR PO SCH (09:10)
[2019-10-01] MEDS: SPIRONOLACTONE 100 MG PO SCH ×2 (09:10→21:12)
[2019-10-01] MEDS: Vitamin THERAPEUTIC TAB PO SCH (09:10)
[2019-10-01] MEDS: Gabapentin CAP(*) 100 MG PO PRN ×3 (09:12→21:10)
[2019-10-01] MEDS: PTO: Estradiol TAB(NF) 2 MG TAB PO SCH ×2 (09:13→21:14)
[2019-10-01] MEDS ORDERED: Nicotine* 2MG (FRUIT FLAVOR) GUM PO PRN (10:15)
[2019-10-01] MEDS ORDERED: DULoxetine DR CAP* 30 MG CAP.DR PO ONE (11:40)
--- NOTE | 2019-10-01 11:48 | PN ---
Subjective - Subjective Date of Service: 10/01/19 Service Type: 36899 Hosp care 15 min low complexity Subjective: Per staff, patient had a sudden angry outburst last evening. She was screaming and destructive in her room. When staff made deescalation attempts, she made threats of violence. On-call psychiatrist ordered a one-time dose of olanzapine. She asked to use quiet room to calm herself. Today, patient is quick to apologize but also blames staff for above. During interview, patient is prompted to identify her own thoughts/feelings/behavior. She is encouraged to brainstorm, with peers and staff if necessary, options she could use in real time when agitated or feeling justified anger. She agrees to increase duloxetine. She asks for increased dose of gabapentin. Manufacturing Tech declines increased gabapentin and patient is prompted to identify self soothing techniques rather than medications. Objective - General Observations Appearance: Well Groomed Stature: Thin Posture: WNL Eye Contact: Average Behavior/Activity: WNL - Interaction Observations Attitude Towards Examiner: Cooperative Stated Mood: Dysphoric Affect: Restricted Speech Pattern/Tone: Clear, Appropriate, Normal Volume Thought Process: Coherent Perception: WNL Thought Content: Preoccupation/Ruminations, Self-Deprecatory Thought Process: Lethality: Suicidal Planning Hallucination Type: Denies Delusion Type: Denies - Cognitive Function Orientation: A&O x 4 Level of Consciousness: Alert Cognition: WNL Estimated Intelligence: Normal Insight: Mostly Blames Others for Problems Judgment Within Normal Limits: No Ability to Make Reasonable Decisions: Moderately Impaired - Medication Compliance Cooperative with Inpatient Medication Regimen: Yes - Group Participation Participates in Group Activities: Partial Assessment - Assessment Merits Inpatient Hospitalization: For Immediate Safety, For Stabilization, For Discharge Planning, Pending Safe DC Plan Inpatient DSM-V Dx: F43.10 Clinical Impression: 28 y.o. single, homeless, male to female transgendered individual with a history of trauma and PTSD who was recently discharged from the [facility] now returns seeking further hospitalization for suicidal thoughts in the context of multiple psychosocial stressors. Plan - Plan Treatment Plan: Name: KASSIE ZAMBRANO Birthdate: 1990 [id number] Continue acute intensive psychiatric treatment. may decrease to q30min observation. staff pass on hold on 10/01 due to behavior outburst on 09/30. increase duloxetine to 60mg daily. continue other medications, as ordered. discharge to include outpatient providers and case management. Continued Medication Management: Start Medication Medications: Current Medications Acetaminophen (Tylenol Tab*) 650 mg PO Q4H PRN PRN Reason: for pain; or Temp >101 F Al Hydrox/Mg Hydrox/Simethicone (Maalox Plus*) 30 ml PO Q4H PRN PRN Reason: INDIGESTION Cyclobenzaprine HCl (Flexeril Tab*) 10 mg PO BEDTIME PRN PRN Reason: SPASMS - MUSCLE Last Admin: 09/30/19 21:05 Dose: 10 mg Duloxetine HCl (Cymbalta Cap*) 60 mg PO DAILY [facility] Duloxetine HCl (Cymbalta Cap*) 30 mg PO ONCE ONE Stop: 10/01/19 11:41 Estradiol (Estradiol Tab(Nf)) 4 mg PO BID [facility] Last Admin: 10/01/19 09:13 Dose: 4 mg Gabapentin (Neurontin Cap(*)) 200 mg PO TID PRN PRN Reason: anxiety/pain Last Admin: 10/01/19 09:12 Dose: 200 mg Ibuprofen (Motrin Tab*) 800 mg PO Q6H PRN PRN Reason: Pain Last Admin: 09/30/19 21:06 Dose: 800 mg Multi-Ingredient Liniment/Rub (Luca Galarza*) 1 applic TOPICAL TID PRN PRN Reason: PAIN - MILD Last Admin: 09/29/19 17:53 Dose: 1 applic Multivitamins (Theragran Tab*) 1 tab PO DAILY [facility] Last Admin: 10/01/19 09:10 Dose: Not Given Nicotine (Nicotine Patch 14 Mg/24 Hr*) 1 patch TRANSDERM DAILY [facility] Nicotine Polacrilex (Nicotine Gum*) 2 mg PO Q2H PRN PRN Reason: CRAVING Pto: Spironolactone (100mg Tab) 1 dose PO BID [facility] Last Admin: 10/01/19 09:10 Dose: 1 dose Pharmacy Profile Note (Nicotine Patch Removal Note*) 1 note FOLLOW UP 2100 MALIA Progesterone (Prometrium (Nf)) 100 mg PO QPM [facility]; Protocol Last Admin: 09/30/19 21:06 Dose: 100 mg - Discharge Plan Discharge Plan: Inpatient Hospitalization Outpatient Program: [facility]
[2019-10-01] MEDS: Nicotine PATCH 14 MG/24 HR* PATCH TRANSDERM SCH (13:55)
[2019-10-01] MEDS ORDERED: Nicotine Patch Removal NOTE PATCH OFF SCH (21:00)
[2019-10-01] MEDS: Cyclobenzaprine TAB* 10 MG PO PRN (21:10)
[2019-10-01] MEDS: PROGESTERONE 100 MG PO SCH (21:13)
[2019-10-02] MEDS: SPIRONOLACTONE 100 MG PO SCH (08:30)
[2019-10-02] MEDS: Vitamin THERAPEUTIC TAB PO SCH (08:31)
[2019-10-02] MEDS: PTO: Estradiol TAB(NF) 2 MG TAB PO SCH (08:31)
[2019-10-02] MEDS: Gabapentin CAP(*) 100 MG PO PRN ×2 (08:32→11:27)
[2019-10-02] MEDS ORDERED: DULoxetine DR CAP* 60 MG CAP.DR PO SCH (09:00)
[2019-10-02] MEDS: Nicotine PATCH 14 MG/24 HR* PATCH TRANSDERM SCH (09:59)
--- NOTE | 2019-10-02 10:28 | DCNOTE ---
Subjective - Subjective Service Types: 08511 Hosp DC Day Mgmt simple under 30 min Discharge Date: 10/02/19 Subjective: Patient is found lying on bed during scheduled group. She denies any particular reason for not attending group, other than "didn't feel like it." She reports concern about housing but is knowledgeable about need to return to [facility] and likely utilize homeless [facility] until there is a more permanent option. She is open to [facility] referral and case management through [facility], along with ongoing individual mental health treatment. She states she has a neurologist appt on 10/16 and requests Rx for flexeril supply until that appt. Objective - General Observations Appearance: Well Groomed Stature: Thin Posture: WNL Eye Contact: Average Behavior/Activity: WNL - Interaction Observations Attitude Towards Examiner: Cooperative Stated Mood: Euthymic Affect: Full Speech Pattern/Tone: Clear, Appropriate, Normal Volume Thought Process: Coherent, Goal Directed Perception: WNL Thought Content: WNL Hallucination Type: Denies Delusion Type: Denies - Cognitive Function Orientation: A&O x 4 Level of Consciousness: Alert Cognition: WNL Estimated Intelligence: Normal Insight: WNL Judgment Within Normal Limits: Yes - Medication Compliance Cooperative with Inpatient Medication Regimen: Yes - Group Participation Participates in Group Activities: Partial DC Assessment - Assessment Clinical Impression: 28 y.o. single, homeless, male to female transgendered individual with a history of trauma and PTSD who was recently discharged from the [facility] and returned seeking further hospitalization for suicidal thoughts in the context of multiple psychosocial stressors. She has tolerated medication changes and stabilized in this structured setting. Merits Inpatient Hospitalization: No Clear for Discharge: Adequate Clinical Respons, Acceptable Safety Profile, Low Utility of Inpt Care Inpatient DSM-V Dx: F43.10 Discharge Planning - Discharge Planning Discharge Plan: Outpatient Follow Up Outpatient Program: [facility] Recommendations for Continuing Care: Medication Management, Psychotherapy, Primary Care Followup Medications: Current Medications Cyclobenzaprine HCl (Flexeril Tab*) 10 mg PO BEDTIME PRN PRN Reason: SPASMS - MUSCLE Last Admin: 10/01/19 21:10 Dose: 10 mg Duloxetine HCl (Cymbalta Cap*) 60 mg PO DAILY [facility] Last Admin: 10/02/19 08:30 Dose: 60 mg Estradiol (Estradiol Tab(Nf)) 4 mg PO BID [facility] Last Admin: 10/02/19 08:31 Dose: 4 mg Gabapentin (Neurontin Cap(*)) 200 mg PO TID PRN PRN Reason: anxiety/pain Last Admin: 10/02/19 08:32 Dose: 200 mg Ibuprofen (Motrin Tab*) 800 mg PO Q6H PRN PRN Reason: Pain Last Admin: 09/30/19 21:06 Dose: 800 mg Multi-Ingredient Liniment/Rub (Luca Galarza*) 1 applic TOPICAL TID PRN PRN Reason: PAIN - MILD Last Admin: 09/29/19 17:53 Dose: 1 applic Multivitamins (Theragran Tab*) 1 tab PO DAILY [facility] Last Admin: 10/02/19 08:31 Dose: Not Given Pto: Spironolactone (100mg Tab) 1 dose PO BID [facility] Last Admin: 10/02/19 08:30 Dose: 1 dose Progesterone (Prometrium (Nf)) 100 mg PO QPM [facility]; Protocol Last Admin: 10/01/19 21:13 Dose: 100 mg Discharge Planning: Prescriptions provided for discharge [] Yes [] No Follow up care details as per social work arrangements. Patient response to discharge plan: [] eager for discharge [] agreeable with discharge plan [] ambivalent about discharge [] disagrees with discharge today
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
== END 2019-10-02 15:57 | disposition home or self-care (01) | DRG 755 ==
LOC: ED 00:19 → BSU 12:19
PROVIDERS: ADMIT Nurse Practitioner Psychiatric/Mental Health; ATTEND Psychiatry & Neurology Psychiatry
DX: F43.10 Post-traumatic stress disorder, unspecified (principal); R45.851 Suicidal ideations; F32.9 Major depressive disorder, single episode, unspecified; F17.200 Nicotine dependence, unspecified, uncomplicated; F17.210 Nicotine dependence, cigarettes, uncomplicated; G40.909 Epilepsy, unspecified, not intractable, without status epilepticus; G43.909 Migraine, unspecified, not intractable, without status migrainosus; F60.3 Borderline personality disorder; F64.9 Gender identity disorder, unspecified; Z91.040 Latex allergy status; Z91.5 Personal history of self-harm; Z79.899 Other long term (current) drug therapy; Z28.21 Immunization not carried out because of patient refusal; Z87.820 Personal history of traumatic brain injury; Z59.0 Homelessness
CPT/HCPCS: 36415; 80053; 80307; 80320; 80329; 81003; 84443; 85025; 99222; 99231; 99238; 99284; A9270-GY; G0480